=== PATIENT | female | born 1950 | race Caucasian/White ===

== ENCOUNTER 2018-08-01 21:13 | Emergency (ER) | payer BC, MEDICARE ==
[~2018-08-01] VITALS: Ht 172.7 cm; Wt 85.0 kg
[~2018-08-01 21:13] MED LIST: FOLI1TAB16 PO; HYDR-4383 PO; NAPR-996 PO; TRAM50TA2 PO
[2018-08-02 01:14] VITALS: BP 144/86
--- NOTE | 2018-08-02 01:31 | NUR ---
DR CARDENAS AT BEDSIDE WITH PT
[2018-08-02] MEDS ORDERED: AZIT250T2 PO (01:35)
[2018-08-02] MEDS ORDERED: azithromycin 250mg tablet PO ONE (01:35)
[2018-08-02] MEDS ORDERED: HYDR-4353 PO (01:35)
[2018-08-02] MEDS ORDERED: ketorolac trometh inj. 60 MG/2 ML VIAL IM ONE (01:35)
== END 2018-08-02 01:53 | disposition home or self-care (01) ==
LOC: ER 21:14
DX: J20.9 Acute bronchitis, unspecified (principal); M06.9 Rheumatoid arthritis, unspecified; Z90.49 Acquired absence of other specified parts of digestive tract; Z90.710 Acquired absence of both cervix and uterus; Z98.51 Tubal ligation status; Z88.6 Allergy status to analgesic agent; Z79.899 Other long term (current) drug therapy
CPT/HCPCS: 71045; 96372; 99283; J1885